=== PATIENT | male | born 1985 | race Caucasian/White ===

== ENCOUNTER 2020-11-30 11:25 | Emergency (ER) | payer OTHER ==
[2020-11-30 11:31] VITALS: BP 126/79; PULSE 85; TEMP 97.2; BMI 30.5
[2020-11-30] MEDS ORDERED: SILVER SULFADIAZINE 1% TOP CREAM 50 GM JAR TP ONE ×2 (12:27→12:31)
== END 2020-11-30 12:33 | disposition home or self-care (01) ==
LOC: JERFT 11:25
DX: T22.111A Burn of first degree of right forearm, initial encounter (principal); Y27.8XXA Contact with other hot objects, undetermined intent, initial encounter
CPT/HCPCS: 99283-25